=== PATIENT | female | born 1990 | race American Indian/Alaskan Native ===

== ENCOUNTER 2017-05-16 12:19 | Emergency (ER) | payer MEDICAID ==
--- NOTE | 2017-05-16 13:03 | Emergency Department Report ---
Stated Complaint: LEG TIGHTNESS/LOWER BACK PN/CRAMPING 17 WKS PREG Time Seen by Provider: 05/16/17 13:01 - HPI History of Present Illness: PT states she is 17 weeks and she missed the last 2 steps and fell earlier today - ROS Review of Systems: + pelvic cramping - vaginal bleeding - Exam Physical Exam: pt looks well, non toxic. no acute distress. steady gait MSE screening note: Focused history and physical exam performed. Due to findings the following was ordered: us ED Disposition for MSE Condition: Stable
[2017-05-16 13:07] VITALS: BP 134/75
[2017-05-16 13:28] LABS: Bilirubin,Urine NEG (Negative); Blood,Urine NEG (Negative); Ketones,Urine NEG (Negative); Leukocyte Esterase,Urine NEG (Negative); Nitrite,Urine NEG (Negative); Protein,Urine <15 mg/dL mg/dL (Negative); Urobilinogen,Urine < 2.0 mg/dL (<2.0)
[2017-05-16 13:36] LABS: RBC,Urine < 1.0 /HPF (0.0-6.0); WBC,Urine < 1.0 /HPF (0.0-6.0)
[2017-05-16] MEDS ORDERED: TYLENOL PO ONE (15:03)
--- NOTE | 2017-05-16 15:04 | Emergency Department Report ---
ED Fall HPI - General Chief Complaint: Fall Stated Complaint: LEG TIGHTNESS/LOWER BACK PN/CRAMPING 17 WKS PREG Time Seen by Provider: 05/16/17 13:01 Source: patient Mode of arrival: Ambulatory - History of Present Illness Initial Comments: Patient reports she accidentally slipped and fell down 1-2 stairs which resulted in pain to back, abdominal and right knee Complaint: fall Onset/Timin -: hour(s) Fall From: down stairs (#) (2) When Fall Occurred: 1-3 hours [employer] Fall Witnessed: yes, by family Place Fall Occurred: home Loss of Consciousness: none Prolonged Down Time?: no Symptoms Prior to Fall: lightheadedness Location: back, abdomen, other (right knee) Location - Extremities: Right: Knee Severity: moderate Severity scale (0 -10): 6 Quality: other (cramping) Context: tripped/slipped Associated Symptoms: abdominal pain. denies: headache, neck pain, numbness, weakness, chest paint, shortness of breath, hematuria, unable to walk, lightheaded, vertigo, confusion - Related Data Allergies Allergy/AdvReac Type Severity Reaction Status Date / Time No Known Allergies Allergy Unverified 05/16/17 13:02 ED Review of Systems ROS: Stated complaint: LEG TIGHTNESS/LOWER BACK PN/CRAMPING 17 WKS PREG Other details as noted in HPI Constitutional: denies: chills, diaphoresis, fever, malaise, weakness Eyes: denies: eye pain ENT: denies: ear pain, throat pain Respiratory: denies: cough, orthopnea, shortness of breath, SOB with exertion, SOB at rest, stridor Cardiovascular: denies: chest pain, palpitations, dyspnea on exertion, orthopnea , edema, syncope, paroxysmal nocturnal dyspnea Gastrointestinal: abdominal pain. denies: nausea, vomiting, diarrhea, constipation Musculoskeletal: back pain, arthralgia (right knee). denies: joint swelling Skin: denies: rash, lesions, change in color, change in hair/nails, pruritus Neurological: denies: headache, weakness Psychiatric: denies: anxiety, depression Hematological/Lymphatic: denies: easy bleeding, easy bruising, swollen glands ED Past Medical Hx - Past Medical History Previous Medical History?: Yes Additional medical history: Heart murmur, Miscarriage x 2 - Surgical History Past Surgical History?: No - Social History Smoking Status: Never Smoker Substance Use Type: Prescribed ED Physical Exam - General Limitations: No Limitations General appearance: alert, in no apparent distress - Head Head exam: Present: atraumatic, normocephalic, normal inspection - Eye Eye exam: Present: normal appearance, PERRL, EOMI Pupils: Present: normal accommodation - ENT ENT exam: Present: normal exam - Neck Neck exam: Present: normal inspection, full ROM. Absent: tenderness, meningismus, lymphadenopathy, thyromegaly - Respiratory Respiratory exam: Present: normal lung sounds bilaterally. Absent: respiratory distress, wheezes, rales, rhonchi, stridor, chest wall tenderness, accessory muscle use, decreased breath sounds, prolonged expiratory - Cardiovascular Cardiovascular Exam: Present: regular rate, normal rhythm, normal heart sounds. Absent: bradycardia, tachycardia, irregular rhythm, systolic murmur, diastolic murmur, rubs, gallop - GI/Abdominal GI/Abdominal exam: Present: soft, tenderness (generalized), normal bowel sounds. Absent: distended, guarding, rebound, rigid - Extremities Exam Extremities exam: Present: normal inspection, full ROM, normal capillary refill. Absent: tenderness, pedal edema, joint swelling - Expanded Lower Extremity Exam Right Hip exam: Present: pelvic stability Knee exam: Present: normal inspection, full ROM, tenderness (with palpation medial), full knee extension. Absent: swelling, abrasion, laceration, ecchymosis, deformity, crepidus, dislocation, erythema, effusion, pain w/ pronation/supination, posterior draw sign, pain/laxity with valgus, pain/laxity with varus Neuro vascular tendon exam: Present: no vascular compromise. Absent: pulse deficit, abnormal cap refill, motor deficit, sensory deficit, tendon deficit, extremity cold to touch, pallor, abnormal 2-point discrimination, decreased fine /light touch, foot drop, peroneal nerve deficit, significant pain with passive ROM of distal joint Gait: Positive: observed and normal - Back Exam Back exam: Present: normal inspection, full ROM, tenderness (right latissimus dorsi with palpation). Absent: CVA tenderness (R), CVA tenderness (L), muscle spasm, paraspinal tenderness, vertebral tenderness, rash noted - Neurological Exam Neurological exam: Present: alert, oriented X3, CN II-XII intact, normal gait, reflexes normal. Absent: motor sensory deficit - Psychiatric Psychiatric exam: Present: normal affect, normal mood. Absent: depressed, agitated - Skin Skin exam: Present: warm, dry, intact, normal color. Absent: rash ED Course Vital Signs 05/16/17 13:02 Temperature 98.4 F Pulse Rate 82 Respiratory 18 Rate Blood Pressure 134/75 O2 Sat by Pulse 100 Oximetry ED Medical Decision Making - Lab Data Result diagrams: 05/16/17 15:45 05/16/17 15:45 Lab Results 05/16/17 05/16/17 05/16/17 Range/Units 13:15 15:45 15:45 WBC 17.9 H (4.5-11.0) K/mm3 RBC 4.34 (3.65-5.03) M/mm3 Hgb 11.0 (10.1-14.3) gm/dl Hct 35.9 (30.3-42.9) % MCV 83 (79-97) fl MCH 25 L (28-32) pg MCHC 31 (30-34) % RDW 26.2 H (13.2-15.2) % Plt Count 177 (140-440) K/mm3 Sodium 138 (137-145) mmol/L Potassium 4.0 (3.6-5.0) mmol/L Chloride 101.9 (98-107) mmol/L Carbon Dioxide 22 (22-30) mmol/L Anion Gap 18 mmol/L BUN 4 L (7-17) mg/dL Creatinine 0.3 L (0.7-1.2) mg/dL Estimated GFR > 60 ml/min BUN/Creatinine Ratio 13.33 % Glucose 73 (65-100) mg/dL Calcium 9.4 (8.4-10.2) mg/dL Total Bilirubin < 0.20 (0.1-1.2) mg/dL AST 14 (5-40) units/L ALT 13 (7-56) units/L Alkaline Phosphatase 76 (35-129) units/L Total Protein 6.6 (6.3-8.2) g/dL Albumin 3.5 L (3.9-5) g/dL Albumin/Globulin Ratio 1.1 % Urine Color Colorless (Yellow) Urine Turbidity Clear (Clear) Urine pH 7.0 (5.0-7.0) Ur Specific [place] 1.001 L (1.003-1.030) Urine Protein <15 mg/dl (Negative) mg/dL Urine Glucose (UA) Neg (Negative) mg/dL Urine Ketones Neg (Negative) mg/dL Urine Blood Neg (Negative) Urine Nitrite Neg (Negative) Ur Reducing Substances Not Reportable Urine Bilirubin Neg (Negative) Urine Ictotest Not Reportable Urine Urobilinogen < 2.0 (<2.0) mg/dL Ur Leukocyte Esterase Neg (Negative) Urine WBC (Auto) < 1.0 (0.0-6.0) /HPF Urine RBC (Auto) < 1.0 (0.0-6.0) /HPF Urine HCG, Qual Positive A (Negative) Vital Signs 05/16/17 13:02 Temperature 98.4 F Pulse Rate 82 Respiratory 18 Rate Blood Pressure 134/75 O2 Sat by Pulse 100 Oximetry - Radiology Data Radiology results: image reviewed INDICATION: Fall, pain, 17 weeks . COMPARISON: None similar. TECHNIQUE: Transabdominal grayscale ultrasound with Doppler interrogation. Gestation: Macias Position: Breech Amniotic Fluid: WNL (< 24 weeks, Subjective) Placenta: Anterior Placental Grade: 0 Heart Rate: 149 BPM Cervical length: 3.3 cm (Normal > 3 cm) BPD: 3.5 cm = 16 w 6 d HC: 13.3 cm = 16 w 6 d AC: 11.5 cm = 17 w 2 d FL: 2.3 cm = 17 w 0 d HC/AC Ratio: 1.2 Cephalic Index: 80.3 Estimated Weight: 181 grams Clinical age = 17 w 4 d EDC: 10/20/2017 US Gest. Age = 17 w 0 d EDC: 10/24/2017 CONCLUSION: Single, viable intrauterine gestation with ultrasound estimated age of 17 weeks and zero days and EDC of 10/24/2017, currently in breech lie with details, as above. - Medical Decision Making During the course of ED, pain medication, laboratory and radiology studies were ordered. The imaging study revealed single, viable intrauterine gestation with ultrasound estimated age of 17 weeks and zero days and EDC of 10/24/2017, currently in breech lie with details, as above. Patient was instructed to take OTC Tylenol as directed for pain and follow up with her Operational Meteorologist provider, she verbalized understanding - Differential Diagnosis Fall, Abdominal Pain, Back Pain, Right Knee Pain Critical care attestation.: If time is entered above; I have spent that time in minutes in the direct care of this critically ill patient, excluding procedure time. ED Disposition Clinical Impression: Fall Qualifiers: Encounter type: initial encounter Qualified Code(s): W19.XXXA - Unspecified fall, initial encounter Disposition: TO HOME OR SELFCARE Is pt being admited?: No Does the pt Need Aspirin: No Condition: Stable Instructions: Fall Prevention (ED) Additional Instructions: Take over the counter Tylenol as directed for pain. Follow up with your Operational Meteorologist. Return back to the ED for worsening symptoms or concerns Referrals: PRIMARY CARE,MD [Primary Care Provider] - 3-5 Days JESSA MOULTON [Dairy Nutritionist] - 3-5 Days MICKIE MALDONADO DO [Staff Physician] - 3-5 Days Forms: Work/School Release Form(ED) Time of Disposition: 16:33
--- NOTE | 2017-05-16 15:10 | Ultrasound Report ---
OB ULTRASOUND GREATER THAN 14 WEEKS INDICATION: Fall, pain, 17 weeks . COMPARISON: None similar. TECHNIQUE: Transabdominal grayscale ultrasound with Doppler interrogation. Gestation: Macias Position: Breech Amniotic Fluid: WNL (< 24 weeks, Subjective) Placenta: Anterior Placental Grade: 0 Heart Rate: 149 BPM Cervical length: 3.3 cm (Normal > 3 cm) BPD: 3.5 cm = 16 w 6 d HC: 13.3 cm = 16 w 6 d AC: 11.5 cm = 17 w 2 d FL: 2.3 cm = 17 w 0 d HC/AC Ratio: 1.2 Cephalic Index: 80.3 Estimated Weight: 181 grams Clinical age = 17 w 4 d EDC: 10/20/2017 US Gest. Age = 17 w 0 d EDC: 10/24/2017 CONCLUSION: Single, viable intrauterine gestation with ultrasound estimated age of 17 weeks and zero days and EDC of 10/24/2017, currently in breech lie with details, as above. Thank you for the opportunity to participate in this patient's care.
[2017-05-16 16:22] LABS: Alanine Aminotransferase 13 units/L (7-56); Albumin 3.5 g/dL (3.9-5); Albumin/Globulin Ratio 1.1 %; Alkaline Phosphatase 76 units/L (35-129); Anion Gap 18 mmol/L; BUN/Creatinine Ratio 13.33; Bilirubin,Total < 0.20 mg/dL (0.1-1.2); Blood Urea Nitrogen 4 mg/dL (7-17); Calcium 9.4 mg/dL (8.4-10.2); Carbon Dioxide 22 mmol/L (22-30); Chloride 101.9 mmol/L (98-107); Glucose 73 mg/dL (65-100); Sodium 138 mmol/L (137-145); Total Protein 6.6 g/dL (6.3-8.2)
[2017-05-16 16:24] LABS: Hematocrit 35.9 % (30.3-42.9); Mean Corpuscular HGB Conc 31 % (30-34); Mean Corpuscular Volume 83 fl (79-97); Platelet Count 177 K/mm3 (140-440); Red Blood Count 4.34 M/mm3 (3.65-5.03); White Blood Count 17.9 K/mm3 (4.5-11.0)
[2017-05-16 16:25] LABS: Mean Corpuscular Hemoglobin 25 pg (28-32); Red Cell Distribution Width 26.2 % (13.2-15.2)
[2017-05-16 18:32] LABS: Blastocytes % (Manual) 0 %
[2017-05-16 18:33] LABS: Anisocytosis 2+; Hypochromasia 1+; Large Platelets Few; Ovalocytes Few; Poikilocytosis 1+
[2017-05-16 18:34] LABS: Diff Status Complete; Platelet Estimate Consistent w Auto
== END 2017-05-16 16:42 | disposition home or self-care (01) ==
LOC: ED 12:19
DX: O9A.212 Injury, poisoning and certain other consequences of external causes complicating pregnancy, second trimester (principal); R10.84 Generalized abdominal pain; M54.9 Dorsalgia, unspecified; Z3A.17 17 weeks gestation of pregnancy; W10.9XXA Fall (on) (from) unspecified stairs and steps, initial encounter; Y93.89 Activity, other specified; Y99.8 Other external cause status; Y92.009 Unspecified place in unspecified non-institutional (private) residence as the place of occurrence of the external cause
CPT/HCPCS: 36415; 76801; 80053; 81001; 81025; 85007; 85025

== ENCOUNTER 2017-06-01 14:09 | Emergency (ER) | payer MEDICAID ==
[2017-06-01 16:27] LABS: Hematocrit 35.8 % (30.3-42.9); Hemoglobin 11.3 gm/dl (10.1-14.3); Mean Corpuscular HGB Conc 32 % (30-34); Mean Corpuscular Hemoglobin 27 pg (28-32); Mean Corpuscular Volume 86 fl (79-97); Platelet Count 171 K/mm3 (140-440); Red Blood Count 4.16 M/mm3 (3.65-5.03); White Blood Count 14.8 K/mm3 (4.5-11.0)
[2017-06-01 16:30] LABS: Red Cell Distribution Width 22.4 % (13.2-15.2)
[2017-06-01 16:47] LABS: Bacteria,Urine 1+ /HPF (Negative); Bilirubin,Urine NEG (Negative); Blood,Urine NEG (Negative); Ketones,Urine NEG (Negative); Leukocyte Esterase,Urine MOD (Negative); Mucus,Urine 2+ /HPF; Nitrite,Urine NEG (Negative); Protein,Urine <15 mg/dL mg/dL (Negative); Urobilinogen,Urine < 2.0 mg/dL (<2.0)
[2017-06-01 17:37] LABS: Basophils % (Manual) 0 % (0.0-1.8); Blastocytes % (Manual) 0 %
[2017-06-01 17:38] LABS: Anisocytosis 1+; Diff Status Complete; Poikilocytosis Few
--- NOTE | 2017-06-01 22:34 | Ultrasound Report ---
FINAL REPORT PROCEDURE: US OB transabdominal and TRANSVAGINAL TECHNIQUE: Real-time transabdominal sonography of the uterus, placenta, amniotic fluid, adnexa, and fetus was performed with image documentation. Measurements were obtained to determine age/size. M-mode Doppler was used to document heartbeat. Transvaginal images were also obtained of the cervix HISTORY: vaginal bleeding COMPARISON: No prior studies are available for comparison. FINDINGS: ADDITIONAL GESTATION: None. GENERAL: IUP: Single living intrauterine . Position: Breech Placental position: Anterior and grade 0; inferior placental edge is 1.7 centimeters from the internal cervical os. Amniotic fluid volume: Subjectively within normal limits but not measured MATERNAL: Uterus: Within normal limits. Cervical length: Transvaginal length measurement is 4.2 cm. Internal Os: Closed. FETUS: Heart rate and rhythm: 159 beats per minute anatomic survey: brain, fluid containing stomach, anterior abdominal wall cord insertion, three-vessel cord, kidneys, fluid containing urinary bladder are visualized and appear unremarkable. Limited evaluation of four-chamber view of the heart and the spine. MEASUREMENTS: BPD: 4.1 centimeters, 18 weeks 4 days HC: 16.1 centimeters, 18 weeks 6 days AC: 14.2 centimeters, 19 weeks 4 days FL: 3.1 centimeters, 19 weeks 5 days Mean Gestational Age (composite criteria): 19 weeks 1 day Ratio biometry: Normal. Estimated Weight: 298 grams. Interval growth: Appropriate. Estimated Due Date (earliest scan): 10/25/2017 IMPRESSION: Single intrauterine gestation at 19 weeks 1 day. Estimated due date: 10/25/2017. Low lying placenta. Recommend sonographic follow-up. PROCEDURE: TECHNIQUE: HISTORY: COMPARISON: FINDINGS: IMPRESSION:
[2017-06-01] MEDS ORDERED: MORPHINE IM ONE (22:41)
--- NOTE | 2017-06-02 00:13 | Emergency Department Report ---
ED General Adult HPI - General Chief complaint: Vaginal Bleeding Stated complaint: 19 WEEKS PREG/SPOTTING /CRAMPING Time Seen by Provider: 06/01/17 23:31 Source: patient, RN notes reviewed, old records reviewed Mode of arrival: Ambulatory Limitations: No Limitations - History of Present Illness Initial comments: This is a 27-year-old female. The patient is previously unknown to me. She reports that she is 3, para 0. Follows at [facility]. Also has a history of chronic "heart murmur", reports that she is following up with her private foaming machine operator this Tuesday at [place], reports that she's had echocardiograms and EKGs in the past. Patient presents to the ER with brownish vaginal discharge, abdominal cramping. This is intermittent, and has since resolved. There is no headache, neck pain, chest pain, shortness of breath, hematemesis, bright red blood per rectum. She denies irritative and obstructive urinary symptoms. She denies chest pain, shortness of breath, vomiting and diaphoresis. The patient does endorse a sensation of "heart pumping", however this is not painful or dyspneic in nature, it is chronic, not acutely worsened or different, and has been present since before her started . It is not her main complaint. -: Gradual Location: abdomen Severity scale (0 -10): 0 Consistency: now resolved Improves with: none Worsens with: none Associated Symptoms: denies: confusion, chest pain, cough, diaphoresis, fever/ chills, headaches, loss of appetite, malaise, nausea/vomiting, rash, seizure, shortness of breath, syncope, weakness - Related Data Previous Rx's Medication Instructions Recorded Last Taken Type Doxylamine/Pyridoxine HCl 1 each PO QHS PRN #30 tablet. 06/02/17 Unknown Rx [Guy Alejandre 10-10 mg Tablet] Vit W-Ca,Fe,FA(<1 mg) 1 each PO QDAY #30 tablet 06/02/17 Unknown Rx [ Vitamins] Allergies Allergy/AdvReac Type Severity Reaction Status Date / Time No Known Allergies Allergy Unverified 05/16/17 13:02 ED Review of Systems ROS: Stated complaint: 19 WEEKS PREG/SPOTTING /CRAMPING Other details as noted in HPI Constitutional: denies: fever Eyes: denies: vision change ENT: denies: epistaxis Respiratory: denies: shortness of breath Cardiovascular: denies: chest pain Gastrointestinal: denies: vomiting Genitourinary: denies: urgency Musculoskeletal: denies: back pain Skin: denies: lesions Neurological: denies: weakness Psychiatric: denies: depression ED Past Medical Hx - Past Medical History Previous Medical History?: Yes Additional medical history: Heart murmur, Miscarriage x 2 - Surgical History Past Surgical History?: No Additional Surgical History: DNC 2016 - Social History Smoking Status: Never Smoker Substance Use Type: Prescribed - Medications Home Medications: Home Medications Medication Instructions Recorded Confirmed Last Taken Type Doxylamine/Pyridoxine HCl 1 each PO QHS PRN #30 tablet. 06/02/17 Unknown Rx [Diclegis Dr 10-10 mg Tablet] Vit W-Ca,Fe,FA(<1 mg) 1 each PO QDAY #30 tablet 06/02/17 Unknown Rx [ Vitamins] ED Physical Exam - General Limitations: No Limitations General appearance: alert, in no apparent distress - Head Head exam: Present: atraumatic, normocephalic - Eye Eye exam: Present: normal appearance, EOMI. Absent: nystagmus - ENT ENT exam: Present: normal exam, normal orophraynx, mucous membranes moist, normal external ear exam - Neck Neck exam: Present: normal inspection, full ROM. Absent: tenderness, meningismus - Respiratory Respiratory exam: Present: normal lung sounds bilaterally. Absent: respiratory distress, wheezes, rales, rhonchi, stridor, chest wall tenderness, accessory muscle use, decreased breath sounds, prolonged expiratory - Cardiovascular Cardiovascular Exam: Present: regular rate, normal rhythm, normal heart sounds. Absent: bradycardia, tachycardia, irregular rhythm, systolic murmur, diastolic murmur, rubs, gallop - GI/Abdominal GI/Abdominal exam: Present: soft, normal bowel sounds, other (uterus is appropriately sized, nontender). Absent: distended, tenderness, guarding, rebound, rigid, pulsatile mass - External exam: Present: normal external exam Speculum exam: Present: normal speculum exam, cervical discharge. Absent: vaginal bleeding Bi-manual exam: Present: normal bi-manual exam, other (escorted by nurse Luz Marina Wesley). Absent: cervical motion tendernes, adnexal tenderness, adnexal mass - Extremities Exam Extremities exam: Present: normal inspection, full ROM, normal capillary refill. Absent: tenderness, pedal edema, joint swelling, calf tenderness - Back Exam Back exam: Present: normal inspection, full ROM. Absent: tenderness, CVA tenderness (R), CVA tenderness (L), muscle spasm, paraspinal tenderness, vertebral tenderness - Neurological Exam Neurological exam: Present: alert, oriented X3, normal gait, other (Extraocular movements intact. Tongue midline. No facial droop. Facial sensation intact to light touch in the V1, V2, V3 distribution bilaterally. 5 and 5 strength in 4 extremities.. Sensation is intact to light touch in 4 extremities.). Absent : motor sensory deficit - Psychiatric Psychiatric exam: Present: normal affect, normal mood - Skin Skin exam: Present: warm, dry, intact, normal color. Absent: rash ED Course Vital Signs 06/01/17 06/02/17 14:45 00:37 Temperature 98.6 F 98.5 F Pulse Rate 83 87 Respiratory 16 24 Rate Blood Pressure 125/78 Blood Pressure 103/58 [Right] O2 Sat by Pulse 100 100 Oximetry ED Medical Decision Making - Lab Data Result diagrams: 06/01/17 15:30 Vital Signs 06/01/17 14:45 Temperature 98.6 F Pulse Rate 83 Respiratory 16 Rate Blood Pressure 125/78 O2 Sat by Pulse 100 Oximetry Lab Results 06/01/17 06/01/17 06/01/17 Range/Units 15:30 15:30 15:30 WBC 14.8 H (4.5-11.0) K/mm3 RBC 4.16 (3.65-5.03) M/mm3 Hgb 11.3 (10.1-14.3) gm/dl Hct 35.8 (30.3-42.9) % MCV 86 (79-97) fl MCH 27 L (28-32) pg MCHC 32 (30-34) % RDW 22.4 H (13.2-15.2) % Plt Count 171 (140-440) K/mm3 Add Manual Diff Complete Total Counted 100 Seg Neuts % (Manual) 83.0 H (40.0-70.0) % Band Neutrophils % 0 % Lymphocytes % (Manual) 13.0 L (13.4-35.0) % Reactive Lymphs % (Man) 0 % Monocytes % (Manual) 3.0 (0.0-7.3) % Eosinophils % (Manual) 1.0 (0.0-4.3) % Basophils % (Manual) 0 (0.0-1.8) % Metamyelocytes % 0 % Myelocytes % 0 % Promyelocytes % 0 % Blast Cells % 0 % Nucleated RBC % Not Reportable Seg Neutrophils # Man 12.3 H (1.8-7.7) K/mm3 Band Neutrophils # 0.0 K/mm3 Lymphocytes # (Manual) 1.9 (1.2-5.4) K/mm3 Abs React Lymphs (Man) 0.0 K/mm3 Monocytes # (Manual) 0.4 (0.0-0.8) K/mm3 Eosinophils # (Manual) 0.1 (0.0-0.4) K/mm3 Basophils # (Manual) 0.0 (0.0-0.1) K/mm3 Metamyelocytes # 0.0 K/mm3 Myelocytes # 0.0 K/mm3 Promyelocytes # 0.0 K/mm3 Blast Cells # 0.0 K/mm3 WBC Morphology Not Reportable Hypersegmented Neuts Not Reportable Hyposegmented Neuts Not Reportable Hypogranular Neuts Not Reportable Smudge Cells Not Reportable Toxic Granulation Not Reportable Toxic Vacuolation Not Reportable Dohle Bodies Not Reportable Pelger-Huet Anomaly Not Reportable Tony Rods Not Reportable Platelet Estimate Appears normal Clumped Platelets Not Reportable Plt Clumps, EDTA Not Reportable Large Platelets Not Reportable Giant Platelets Not Reportable Platelet Satelliting Not Reportable Plt Morphology Comment Not Reportable RBC Morphology Not Reportable Dimorphic RBCs Not Reportable Polychromasia Not Reportable Hypochromasia Not Reportable Poikilocytosis Few Anisocytosis 1+ Microcytosis Not Reportable Macrocytosis Not Reportable Spherocytes Not Reportable Pappenheimer Bodies Not Reportable Sickle Cells Not Reportable Target Cells Not Reportable Tear Drop Cells Not Reportable Ovalocytes Not Reportable Helmet Cells Not Reportable Horta-Hazard Bodies Not Reportable [place]pine Rings Not Reportable [place] Cells Not Reportable Bite Cells Not Reportable Crenated Cell Not Reportable Elliptocytes Not Reportable Acanthocytes (Spur) Not Reportable Rouleaux Not Reportable Hemoglobin C Crystals Not Reportable Schistocytes Not Reportable Malaria parasites Not Reportable Kishor Bodies Not Reportable Hem Pathologist Commnt No HCG, Quant 11132 H (0-4) mIU/mL Urine Color (Yellow) Urine Turbidity (Clear) Urine pH (5.0-7.0) Ur Specific [place] (1.003-1.030) Urine Protein (Negative) mg/dL Urine Glucose (UA) (Negative) mg/dL Urine Ketones (Negative) mg/dL Urine Blood (Negative) Urine Nitrite (Negative) Ur Reducing Substances Urine Bilirubin (Negative) Urine Ictotest Urine Urobilinogen (<2.0) mg/dL Ur Leukocyte Esterase (Negative) Urine WBC (Auto) (0.0-6.0) /HPF Urine RBC (Auto) (0.0-6.0) /HPF U Epithel Cells (Auto) (0-13.0) /HPF Urine Bacteria (Auto) (Negative) /HPF Urine Mucus /HPF Blood Type A POSITIVE Antibody Screen Negative 06/01/17 Range/Units 16:00 WBC (4.5-11.0) K/mm3 RBC (3.65-5.03) M/mm3 Hgb (10.1-14.3) gm/dl Hct (30.3-42.9) % MCV (79-97) fl MCH (28-32) pg MCHC (30-34) % RDW (13.2-15.2) % Plt Count (140-440) K/mm3 Add Manual Diff Total Counted Seg Neuts % (Manual) (40.0-70.0) % Band Neutrophils % % Lymphocytes % (Manual) (13.4-35.0) % Reactive Lymphs % (Man) % Monocytes % (Manual) (0.0-7.3) % Eosinophils % (Manual) (0.0-4.3) % Basophils % (Manual) (0.0-1.8) % Metamyelocytes % % Myelocytes % % Promyelocytes % % Blast Cells % % Nucleated RBC % Seg Neutrophils # Man (1.8-7.7) K/mm3 Band Neutrophils # K/mm3 Lymphocytes # (Manual) (1.2-5.4) K/mm3 Abs React Lymphs (Man) K/mm3 Monocytes # (Manual) (0.0-0.8) K/mm3 Eosinophils # (Manual) (0.0-0.4) K/mm3 Basophils # (Manual) (0.0-0.1) K/mm3 Metamyelocytes # K/mm3 Myelocytes # K/mm3 Promyelocytes # K/mm3 Blast Cells # K/mm3 WBC Morphology Hypersegmented Neuts Hyposegmented Neuts Hypogranular Neuts Smudge Cells Toxic Granulation Toxic Vacuolation Dohle Bodies Pelger-Huet Anomaly Tony Rods Platelet Estimate Clumped Platelets Plt Clumps, EDTA Large Platelets Giant Platelets Platelet Satelliting Plt Morphology Comment RBC Morphology Dimorphic RBCs Polychromasia Hypochromasia Poikilocytosis Anisocytosis Microcytosis Macrocytosis Spherocytes Pappenheimer Bodies Sickle Cells Target Cells Tear Drop Cells Ovalocytes Helmet Cells Horta-Hazard Bodies Alpine Rings Bree Cells Bite Cells Crenated Cell Elliptocytes Acanthocytes (Spur) Rouleaux Hemoglobin C Crystals Schistocytes Malaria parasites Kishor Bodies Hem Pathologist Commnt HCG, Quant (0-4) mIU/mL Urine Color Yellow (Yellow) Urine Turbidity Slightly-cloudy (Clear) Urine pH 6.0 (5.0-7.0) Ur Specific [place] 1.020 (1.003-1.030) Urine Protein <15 mg/dl (Negative) mg/dL Urine Glucose (UA) Neg (Negative) mg/dL Urine Ketones Neg (Negative) mg/dL Urine Blood Neg (Negative) Urine Nitrite Neg (Negative) Ur Reducing Substances Not Reportable Urine Bilirubin Neg (Negative) Urine Ictotest Not Reportable Urine Urobilinogen < 2.0 (<2.0) mg/dL Ur Leukocyte Esterase Mod (Negative) Urine WBC (Auto) 5.0 (0.0-6.0) /HPF Urine RBC (Auto) 5.0 (0.0-6.0) /HPF U Epithel Cells (Auto) 11.0 (0-13.0) /HPF Urine Bacteria (Auto) 1+ (Negative) /HPF Urine Mucus 2+ /HPF Blood Type Antibody Screen - EKG Data -: EKG Interpreted by Me EKG shows normal: sinus rhythm, axis, intervals, QRS complexes, ST-T waves - EKG Data When compared to previous EKG there are: previous EKG unavailable - Radiology Data Radiology results: report reviewed, image reviewed Obstetrics ultrasound demonstrates intrauterine , no obvious bleeding - Medical Decision Making Differential diagnosis: Placenta previa, placental abruption, labor, vaginitis, urinary tract infection, chronic heart murmur Assessment and plan: 27-year-old female with resolved abdominal cramping, and nonspecific vaginal discharge. She is afebrile, with reassuring vital signs, given the clinical history, I do not believe the patient requires additional risk stratification for thromboembolic disease, as her complaints regarding her heart pumping sensation are chronic, they're not new, worsening or different, they have been present since prior to the start of her , and her main complaint is brownish discharge. GC swab and wet prep have been sent, I will defer to the patient's outpatient primary care doctor to follow this up, she can follow-up with her outpatient foaming machine operator this week as scheduled. there does not appear to be any emergent condition at this time, her ultrasound is not consistent with placenta previa, abruption, urinalysis and clinical history do not support the diagnosis of urinary tract infection. Critical care attestation.: If time is entered above; I have spent that time in minutes in the direct care of this critically ill patient, excluding procedure time. ED Disposition Clinical Impression: Disposition: DC-01 TO HOME OR SELFCARE Is pt being admited?: No Does the pt Need Aspirin: No Condition: Stable Instructions: (ED) Additional Instructions: Take the medications as needed/directed. Follow up with her foaming machine operator this Tuesday as scheduled. Follow up with your slasher sawyer within the next 2 weeks or as scheduled. Cultures were sent today, results will be available in the next 3-5 days, please have your primary care [employer] doctor contact the medical records department to obtain culture results. Rest and avoid heavy lifting, avoid strenuous physical activity, and did not resume sexual activity until cleared by her slasher sawyer. Return to the ER right away with new pain, worsened pain, migration of pain, fevers, chills, confusion, intractable nausea or vomiting, inability to tolerate liquid feeds, severe vaginal bleeding more than 2 pads soaked per hour. Prescriptions: Doxylamine/Pyridoxine HCl [Guy Alejandre 10-10 mg Tablet] 1 each PO QHS PRN #30 tablet. PRN Reason: Nausea Vit W-Ca,Fe,FA(<1 mg) [ Vitamins] 1 each PO QDAY #30 tablet Referrals: PRIMARY CARE, [Primary Care Provider] - 3-5 Days
[2017-06-02 00:38] VITALS: BP 103/58
== END 2017-06-02 00:48 | disposition home or self-care (01) ==
LOC: ED 14:09
DX: O46.92 Antepartum hemorrhage, unspecified, second trimester (principal); Z3A.19 19 weeks gestation of pregnancy
CPT/HCPCS: 36415; 76805; 76817; 81001; 81025; 84702; 85007; 85025; 86850; 86900; 86901; 87210; 87591; 93005; 93010